=== PATIENT | male | born 1955 | race Caucasian/White ===

== ENCOUNTER 2018-07-08 19:54 | Emergency (ER) | payer OTHER ==
[2018-07-08] MEDS ORDERED: predniSONE 10 MG TAB ONE (20:25)
[2018-07-08] MEDS ORDERED: predniSONE 20 MG TAB ONE (20:25)
== END 2018-07-08 20:31 | disposition home or self-care (01) ==
LOC: MADERS 19:54
DX: S90.861A Insect bite (nonvenomous), right foot, initial encounter (principal); T78.40XA Allergy, unspecified, initial encounter; I10 Essential (primary) hypertension; E78.5 Hyperlipidemia, unspecified; F17.210 Nicotine dependence, cigarettes, uncomplicated; F41.9 Anxiety disorder, unspecified; Z79.899 Other long term (current) drug therapy; W57.XXXA Bitten or stung by nonvenomous insect and other nonvenomous arthropods, initial encounter
CPT/HCPCS: 99283; J7506; J7512